=== PATIENT | male | born 1995 | race Caucasian/White ===

== ENCOUNTER → 2022-01-04 | Outpatient (REF) | payer OTHER | LOC: M SMT 17:18 | PROVIDERS: ATTEND Urology | DX: Z30.2 Encounter for sterilization (principal) ==

== ENCOUNTER 2022-02-22 12:10 | Emergency (ER) | payer OTHER ==
[~2022-02-22] VITALS: Ht 177.8 cm; Wt 110.3 kg
[2022-02-22 14:36] VITALS: BP 132/80
== END 2022-02-22 14:38 | disposition home or self-care (01) ==
LOC: M ED 12:10
DX: S93.401A Sprain of unspecified ligament of right ankle, initial encounter (principal); S80.812A Abrasion, left lower leg, initial encounter; S50.811A Abrasion of right forearm, initial encounter; W17.89XA Other fall from one level to another, initial encounter; F10.10 Alcohol abuse, uncomplicated; Y92.9 Unspecified place or not applicable; Y93.9 Activity, unspecified; Y99.0 Civilian activity done for income or pay

== ENCOUNTER → 2023-04-05 | Outpatient (CLI) | payer OTHER | LOC: M WHC 13:26 | PROVIDERS: ATTEND Physician Assistant | DX: N50.812 Left testicular pain (principal) ==